=== PATIENT | male | born 1935 | race African-American/Black ===

== ENCOUNTER 2017-06-01 20:29 | Emergency (ER) | payer MEDICARE, OTHER ==
[~2017-06-01] VITALS: Ht 180.3 cm; Wt 81.0 kg
[~2017-06-01 20:29] MED LIST: ASPI-1159 PO; ATOR10TA69 PO; BRIM5DRO EACHEYE; CHOL100044 PO; CLOP75TA33 PO; LISI-604 PO; LISINOPRIL; NIFE60TA7 PO; TRAV2.5D EACHEYE
[2017-06-01 22:01] LABS: BASOPHILS % 0.9 % (0.0-2.0); EOSINOPHILS % 1.2 % (0.0-5.0); HEMATOCRIT. 45.8 % (42.0-52.0); HEMOGLOBIN. 15.6 g/dL (14.0-18.0); LYMPHOCYTES % 13.4 % (20.0-50.0); MEAN CORPUSCULAR VOLUME 88.4 fL (80.0-94.0); MEAN PLATELET VOLUME 9.5 fl (7.4-10.4); MONOCYTES % 11.3 % (2.0-8.0); NEUTROPHILS % 73.2 % (40.0-76.0); PLATELET 298 x1000/uL (130-400); RED BLOOD CELL COUNT 5.19 mill/uL (4.7-6.1); RED CELL DISTRIBUTION WIDTH 16.2 % (11.6-14.6)
[2017-06-01 23:00] LABS: CHLORIDE 107 mEq/L (98-107)
[2017-06-01 23:02] LABS: PROTHROMBIN TIME 10.7 sec (9.4-11.6)
[2017-06-01 23:05] LABS: CARBON DIOXIDE 28 mEq/L (21-32)
[2017-06-01 23:13] LABS: TROPONIN I 0.12 ng/mL (0.00-0.04)
[2017-06-01 23:45] VITALS: BP 155/69
== END 2017-06-01 23:45 | disposition left against medical advice (07) ==
LOC: ER 20:58
DX: S00.03XA Contusion of scalp, initial encounter (principal); R55 Syncope and collapse; I10 Essential (primary) hypertension; H40.9 Unspecified glaucoma; E11.9 Type 2 diabetes mellitus without complications; Z79.82 Long term (current) use of aspirin; Z79.01 Long term (current) use of anticoagulants; W18.30XA Fall on same level, unspecified, initial encounter; Y93.89 Activity, other specified; Y92.89 Other specified places as the place of occurrence of the external cause; Y99.8 Other external cause status
CPT/HCPCS: 36415; 70450; 71010; 80053; 82962; 84484; 85025; 85610; 93005; 99285